=== PATIENT | female | born 1985 ===

== ENCOUNTER 2017-12-23 08:55 | Day surgery (SDC) | payer MEDICAID ==
[~2017-12-23 08:55] MED LIST: Dextrose 5%/0.45% NS 1,000 ML IV SCH; Morphine 10 mg/5 ml Oral Soln PO PRN
[2017-12-23 09:30] VITALS: BP 114/71; PULSE 81; RESP 20; TEMP 98.2; O2SAT 100
== END 2017-12-23 10:20 | disposition home or self-care (01) ==
LOC: C.SDS 08:55
PROVIDERS: ATTEND Otolaryngology
DX: J35.01 Chronic tonsillitis (principal); Z53.09 Procedure and treatment not carried out because of other contraindication; Z33.1 Pregnant state, incidental
CPT/HCPCS: 36415; 84702; P000X